=== PATIENT | male | born 1925 | race Caucasian/White ===

== ENCOUNTER 2016-12-31 22:58 | Inpatient (IN) | payer OTHER, BC ==
[~2016-12-31] VITALS: Ht 185.4 cm; Wt 72.7 kg
[2016-12-31 23:56] LABS: HEMATOCRIT 41.2 % (38.0-50.0); MCH 33.3 PG (29.0-34.0); MCHC 32.8 G/DL (30.0-36.0); MCV 101.5 FL (86-99); MEAN PLAT.VOLUME 10.1 uM^3 (9.0-12.4); PLATELET COUNT 178 K/uL (156-360); RBC DIS.WIDTH-CV 13.1 % (11.8-14.6); RBC DIS.WIDTH-SD 49.1 % (39-53); RED BLOOD COUNT 4.06 M/uL (4.00-5.50); WHITE BLOOD COUNT 19.7 K/uL (4.1-10.2)
[2017-01-01] VITALS (7 sets, daily range): BP systolic 115–161; BP diastolic 55–82
[2017-01-01 00:03] LABS: INTER. NORMALIZED RATIO 2.6; PROTHROMBIN TIME 29.8 SEC (10.2-12.9)
[2017-01-01 00:04] LABS: CARBON DIOXIDE (BICARBONATE) 36.3 MEQ/L (20-31)
[2017-01-01 00:06] LABS: PTT 34.6 SEC (25-37)
[2017-01-01 00:07] LABS: CHLORIDE 98 mEq/L (99-109); POTASSIUM 4.8 mEq/L (3.7-5.4); SODIUM 141 mEq/L (136-147)
[2017-01-01 00:08] LABS: GLUCOSE 124 mg/dL (70-99)
[2017-01-01 00:10] LABS: ANION GAP 13 MEQ/L (2-14)
[2017-01-01 00:12] LABS: GFR ESTIMATE (CALCULATED) 41 mL/min/
[2017-01-01 00:13] LABS: UREA NITROGEN (BUN) 29 mg/dL (9-23)
[2017-01-01 00:19] LABS: TROP-I INTERPRETATION NEGATIVE; TROPONIN-I 0.05 ng/mL (0.0-0.30)
[2017-01-01 00:57] LABS: BASE EXCESS 5.3 mEq/L (-3 to +3); BICARBONATE 31.1 mEq/L (22-26); CARBOXY HGB 2.5 % (0-5); METHEMOGLOBIN 0.9 % (0-1.5); PCO2 49 mm Hg (35-45); PO2 49 mm Hg (80-100); pH 7.41 (7.35-7.45)
[2017-01-01 00:58] LABS: COMMENTS - BLOOD GASES C+; DEVICE NC; O2 FLOW 4 L/MIN; SITE RR; TOTAL RESP RATE 20 resp/min
[2017-01-01] MEDS ORDERED: ADVAIR 250/501 DISK IH (01:00)
[2017-01-01] MEDS ORDERED: INDERAL60 MG PO (01:00)
[2017-01-01] MEDS ORDERED: COUMADIN1 MG PO ×2 (01:00)
[2017-01-01] MEDS ORDERED: LATANOPROST2.5 ML BOTH EYES (01:00)
[2017-01-01] MEDS ORDERED: FUROSEMIDE40 MG PO (01:01)
[2017-01-01] MEDS ORDERED: KLOR-CON 1010 ME1 PO (01:01)
[2017-01-01] MEDS ORDERED: DIGOX125 MCG PO (01:01)
[2017-01-01] MEDS ORDERED: SPIRIVA1 INHALATI IH (01:01)
[2017-01-01] MEDS ORDERED: ONE-A-DAY ESSE1 EAC1 PO (01:02)
[2017-01-01] MEDS ORDERED: CO Q-1010 MG PO (01:03)
[2017-01-01] MEDS ORDERED: LUTEIN10 MG PO (01:03)
[2017-01-01] MEDS ORDERED: CYANOCOBALAM1000 MCG PO (01:03)
[2017-01-01] MEDS ORDERED: VITAMIN D31000 UNIT PO (01:03)
[2017-01-01 02:44] LABS: TOTAL BILIRUBIN 0.6 mg/dL (0.0-1.0)
[2017-01-01 02:45] LABS: ALKALINE PHOSPHATASE 83 IU/L (3-129)
[2017-01-01 02:48] LABS: DIRECT BILIRUBIN 0.3 mg/dL (0.0-0.3)
[2017-01-01 07:15] LABS: CARBON DIOXIDE (BICARBONATE) 31.9 MEQ/L (20-31); EOSINOPHIL (%) 0 % (0-5); IMMATURE GRANULOCYTE (%) 0.8 % (0.0-0.7); IMMATURE GRANULOCYTE COUNT 0.2 K/uL; INSTRUMENT ABS NEUTROPHIL CT 21.5 K/uL; LYMPHOCYTE COUNT 0.5 K/uL (1.0-2.8); MCH 33.6 PG (29.0-34.0); MCHC 33.7 G/DL (30.0-36.0); MCV 99.7 FL (86-99); MEAN PLAT.VOLUME 10.6 uM^3 (9.0-12.4); MONOCYTE (%) 1.6 % (3-12); MONOCYTE COUNT 0.4 K/uL (0-0.8); NEUTROPHIL (%) 95.1 % (45-76); NEUTROPHIL COUNT 21.5 K/uL (1.8-6.4); PLATELET COUNT 142 K/uL (156-360); RBC DIS.WIDTH-SD 47.5 % (39-53); RED BLOOD COUNT 3.81 M/uL (4.00-5.50); WHITE BLOOD COUNT 22.6 K/uL (4.1-10.2)
[2017-01-01 07:24] LABS: INTER. NORMALIZED RATIO 2.7; PROTHROMBIN TIME 30.7 SEC (10.2-12.9)
[2017-01-01 07:42] LABS: TROP-I INTERPRETATION NEGATIVE
[2017-01-01 07:44] LABS: ALKALINE PHOSPHATASE 66 IU/L (3-129); ANION GAP 11 MEQ/L (2-14); CHLORIDE 100 MEQ/L (99-109); GFR ESTIMATE (CALCULATED) 43 mL/min/; GLUCOSE 143 mg/dL (70-99); POTASSIUM 4.9 MEQ/L (3.7-5.4); SAMPLE HEMOLYSIS CHECK 0; SAMPLE ICTERIC CHECK 0; SAMPLE LIPEMIA CHECK 0; SODIUM 139 MEQ/L (136-147); UREA NITROGEN (BUN) 29 mg/dL (9-23)
[2017-01-01 12:47] LABS: TROP-I INTERPRETATION NEGATIVE
[2017-01-02 05:36] LABS: EOSINOPHIL (%) 0 % (0-5); HEMATOCRIT 33.8 % (38.0-50.0); IMMATURE GRANULOCYTE (%) 0.5 % (0.0-0.7); IMMATURE GRANULOCYTE COUNT 0.1 K/uL; INSTRUMENT ABS NEUTROPHIL CT 15.3 K/uL; LYMPHOCYTE COUNT 0.5 K/uL (1.0-2.8); MCH 33.7 PG (29.0-34.0); MCHC 33.4 G/DL (30.0-36.0); MCV 100.9 FL (86-99); MEAN PLAT.VOLUME 11.2 uM^3 (9.0-12.4); MONOCYTE (%) 1.4 % (3-12); MONOCYTE COUNT 0.2 K/uL (0-0.8); NEUTROPHIL (%) 94.8 % (45-76); NEUTROPHIL COUNT 15.3 K/uL (1.8-6.4); PLATELET COUNT 139 K/uL (156-360); RBC DIS.WIDTH-CV 13.2 % (11.8-14.6); RBC DIS.WIDTH-SD 48.5 % (39-53); RED BLOOD COUNT 3.35 M/uL (4.00-5.50); WHITE BLOOD COUNT 16.2 K/uL (4.1-10.2)
[2017-01-02 05:37] LABS: INTER. NORMALIZED RATIO 2.6; PROTHROMBIN TIME 30.1 SEC (10.2-12.9)
[2017-01-02 06:00] LABS: ANION GAP 12 MEQ/L (2-14); CHLORIDE 101 MEQ/L (99-109); GFR ESTIMATE (CALCULATED) 43 mL/min/; GLUCOSE 141 mg/dL (70-99); POTASSIUM 4.3 MEQ/L (3.7-5.4); SAMPLE HEMOLYSIS CHECK 0; SAMPLE ICTERIC CHECK 0; SAMPLE LIPEMIA CHECK 0; SODIUM 140 MEQ/L (136-147); UREA NITROGEN (BUN) 31 mg/dL (9-23)
[2017-01-02 07:45] VITALS: BP 135/71
[2017-01-02 13:26] VITALS: BP 125/58
[2017-01-02 13:35] VITALS: BP 128/63
[2017-01-02 16:39] VITALS: BP 156/72
[2017-01-02 19:00] VITALS: BP 145/67
[2017-01-02 23:00] VITALS: BP 126/58
[2017-01-03 04:15] VITALS: BP 143/65
[2017-01-03 05:19] LABS: EOSINOPHIL (%) 0 % (0-5); HEMATOCRIT 32.6 % (38.0-50.0); IMMATURE GRANULOCYTE (%) 0.9 % (0.0-0.7); IMMATURE GRANULOCYTE COUNT 0.1 K/uL; LYMPHOCYTE COUNT 0.4 K/uL (1.0-2.8); MCH 33.7 PG (29.0-34.0); MCHC 33.7 G/DL (30.0-36.0); MEAN PLAT.VOLUME 11.2 uM^3 (9.0-12.4); MONOCYTE (%) 2.2 % (3-12); MONOCYTE COUNT 0.3 K/uL (0-0.8); NEUTROPHIL (%) 93.9 % (45-76); PLATELET COUNT 138 K/uL (156-360); RBC DIS.WIDTH-CV 13.4 % (11.8-14.6); RBC DIS.WIDTH-SD 49.6 % (39-53); RED BLOOD COUNT 3.26 M/uL (4.00-5.50); WHITE BLOOD COUNT 14.9 K/uL (4.1-10.2)
[2017-01-03 05:48] LABS: PROTHROMBIN TIME 34.4 SEC (10.2-12.9)
[2017-01-03 08:30] VITALS: BP 151/68
[2017-01-03] MEDS ORDERED: AUGMENTIN875 MG PO (09:14)
[2017-01-03] MEDS ORDERED: PREDNISONE20 MG PO (09:16)
== END 2017-01-03 14:04 | disposition home health service (06) | DRG 871 ==
LOC: EME → EDBD 22:58 → EME 22:58 → 4EAST 01-01 02:22 → EDOF 01-01 02:22 → ENRESERV 01-01 02:23 → 4EAST 01-01 07:18 → ENPENDDIS 01-03 → 4EAST 01-03 14:04
PROVIDERS: Emergency Medicine; Nurse Practitioner Adult Health; Physician Assistant Medical
DX: A41.9 Sepsis, unspecified organism (principal); J69.0 Pneumonitis due to inhalation of food and vomit; J96.21 Acute and chronic respiratory failure with hypoxia; E87.4 Mixed disorder of acid-base balance; J44.1 Chronic obstructive pulmonary disease with (acute) exacerbation; J84.10 Pulmonary fibrosis, unspecified; R13.12 Dysphagia, oropharyngeal phase; J96.22 Acute and chronic respiratory failure with hypercapnia; I48.2 Chronic atrial fibrillation; Z79.01 Long term (current) use of anticoagulants; N18.3 Chronic kidney disease, stage 3 (moderate); R94.31 Abnormal electrocardiogram [ECG] [EKG]; I12.9 Hypertensive chronic kidney disease with stage 1 through stage 4 chronic kidney disease, or unspecified chronic kidney disease; Z99.81 Dependence on supplemental oxygen; Z85.820 Personal history of malignant melanoma of skin; Z79.899 Other long term (current) drug therapy; Z87.891 Personal history of nicotine dependence; K22.4 Dyskinesia of esophagus; Z88.2 Allergy status to sulfonamides; R01.1 Cardiac murmur, unspecified; Z86.79 Personal history of other diseases of the circulatory system
CPT/HCPCS: 36600; 71020; 74230; 80048; 80053; 80076; 82803; 83605; 83880; 84484; 85025; 85027; 85610; 85730; 87040; 87070; 87205; 92526 GN; 92611 GN; 93005; 94640; 94640 76; 94799; 99202; 99281; 99285; J1100; J1160; J1940; J2543; J2920; J2930; J7030; J7050; J7512

== ENCOUNTER 2017-01-11 10:27 | Emergency (ER) | payer OTHER, BC ==
[~2017-01-11] VITALS: Ht 185.4 cm; Wt 68.0 kg
[~2017-01-11 10:27] MED LIST: ADVAIR 250/501 DISK IH; AUGMENTIN875 MG PO; CO Q-1010 MG PO; COUMADIN1 MG PO; CYANOCOBALAM1000 MCG PO; DIGOX125 MCG PO; FUROSEMIDE40 MG PO; INDERAL60 MG PO; KLOR-CON 1010 ME1 PO; LATANOPROST2.5 ML BOTH EYES; LUTEIN10 MG PO; ONE-A-DAY ESSE1 EAC1 PO; PREDNISONE20 MG PO; SPIRIVA1 INHALATI IH; VITAMIN D31000 UNIT PO
[2017-01-11 11:46] LABS: HEMATOCRIT 39.6 % (38.0-50.0); MCH 33.7 PG (29.0-34.0); MCHC 33.1 G/DL (30.0-36.0); MCV 101.8 FL (86-99); MEAN PLAT.VOLUME 10.7 uM^3 (9.0-12.4); NRBC (%) 0.1 /100 WBC (0-0); PLATELET COUNT 132 K/uL (156-360); RBC DIS.WIDTH-CV 14.3 % (11.8-14.6); RED BLOOD COUNT 3.89 M/uL (4.00-5.50); WHITE BLOOD COUNT 14.6 K/uL (4.1-10.2)
[2017-01-11 11:57] LABS: CHLORIDE 97 mEq/L (99-109); POTASSIUM 4.2 mEq/L (3.7-5.4); SODIUM 140 mEq/L (136-147)
[2017-01-11 11:59] LABS: GLUCOSE 113 mg/dL (70-99)
[2017-01-11 12:00] LABS: ANION GAP 11 MEQ/L (2-14)
[2017-01-11 12:03] LABS: GFR ESTIMATE (CALCULATED) 47 mL/min/
[2017-01-11 12:04] LABS: TROP-I INTERPRETATION NEGATIVE; TROPONIN-I 0.21 ng/mL (0.0-0.30); UREA NITROGEN (BUN) 36 mg/dL (9-23)
[2017-01-11 13:38] LABS: INTER. NORMALIZED RATIO 2.9; PROTHROMBIN TIME 32.9 SEC (10.2-12.9)
[2017-01-11 14:58] VITALS: BP 117/69
[2017-01-11 15:12] LABS: ADD MIUA? YES; BILIRUBIN NEGATIVE; BLOOD NEGATIVE; COLOR YELLOW ((YELLOW)); GLUCOSE (STRIP) NEGATIVE; KETONES NEGATIVE; LEUKOCYTES NEGATIVE; NITRITE NEGATIVE; PROTEIN (STRIP) NEGATIVE; SPECIFIC GRAVITY 1.014 (1.000-1.030); UROBILINOGEN 0.2 MG/DL (0.2-1.0)
[2017-01-11 15:18] LABS: BACTERIA RARE /HPF; EPITHELIAL CELLS RARE /HPF; MUCUS NONE SEEN /LPF; RED BLOOD CELLS 0-5 /HPF (0-5); UCUL ADDED? NO; WHITE BLOOD CELLS 0-5 /HPF (0-5)
== END 2017-01-11 14:58 | disposition home or self-care (01) ==
LOC: EME 10:27
PROVIDERS: Emergency Medicine
DX: E86.0 Dehydration (principal); R53.1 Weakness; J44.0 Chronic obstructive pulmonary disease with (acute) lower respiratory infection; J18.9 Pneumonia, unspecified organism; I10 Essential (primary) hypertension; I48.91 Unspecified atrial fibrillation; Z79.01 Long term (current) use of anticoagulants; Z87.891 Personal history of nicotine dependence; Z88.2 Allergy status to sulfonamides
CPT/HCPCS: 71020; 80048; 81003; 84484; 85027; 85610; 93005; 99281; 99282